=== PATIENT | female | born 1930 | race Caucasian/White ===

== ENCOUNTER 2017-10-23 21:54 | Emergency (ER) | payer BC, OTHER ==
--- NOTE | 2017-10-23 22:10 | PDOC ---
History of Present Illness - General Chief Complaint: Pain, Acute Stated Complaint: SHAKY, HEADACHE, CHEST DISCOMFORT THIS AM Time Seen by Provider: 10/23/17 21:58 - History of Present Illness Initial Comments: This 86-year-old woman with a history of CHF, DM, HTN, HLD, chronic renal insufficiency presents with 2 episodes of chest pain earlier today. Patient speaks limited Albanian (speaks mainly Uzbek) and her family has been interpreting for her. During the morning today, while the patient was at rest, she had pain below her left chest that lasted approximately a half hour. Pain resolved after she took her morning medications. She denies shortness of breath /nausea or vomiting/diaphoresis during this episode. She had no increase of pain with deep breathing and denied cough. This afternoon, she again had pain, location at this time was admitted sternal area. This pain resolved after several minutes and did not have any associated symptoms except for generalized "shakiness" . Patient has not had no increase in her lower extremity edema recently. She denies lower extremity pain The patient has had no recent febrile illness and has been taking her medications as prescribed. Past History - Past Medical History Allergies/Adverse Reactions: Allergies Allergy/AdvReac Type Severity Reaction Status Date / Time No Known Allergies Allergy Verified 10/23/17 22:18 Home Medications: Ambulatory Orders Furosemide [Lasix -] 40 mg PO DAILY 05/02/15 Labetalol HCl 150 mg PO BID 05/02/15 Omeprazole [Prilosec] 40 mg PO DAILY 05/02/15 Tramadol HCl 50 mg PO BID PRN #30 12/11/15 Aspirin [ASA -] 81 mg PO DAILY #30 tab.chew 10/24/17 Atorvastatin Ca [Lipitor] 10 mg PO HS #30 tablet 10/24/17 Anemia: No Asthma: No Cancer: No Cardiac Disorders: No CVA: No COPD: No CHF: No Dementia: No Diabetes: No GI Disorders: Yes (EPIGASTRIC/ABDOMEN PAIN) Disorders: No HTN: Yes Hypercholesterolemia: Yes Liver Disease: No Seizures: No Thyroid Disease: No - Surgical History Abdominal Surgery: No Appendectomy: Yes Cardiac Surgery: No Cholecystectomy: Yes Lung Surgery: No Neurologic Surgery: No Orthopedic Surgery: No - Suicide/Smoking/Psychosocial Hx Smoking Status: No Smoking History: Never smoked Have you smoked in the past 12 months: No Number of Cigarettes Smoked Daily: 0 Hx Alcohol Use: No Drug/Substance Use Hx: No Substance Use Type: None Hx Substance Use Treatment: No Cardiac Specific PMH - Complaint Specific PMHX Pacemaker: No Review of Systems - Review of Systems Able to Perform ROS?: Yes Comments:: 12 point review of systems is negative except for what is noted in the history of present illness *Physical Exam - Vital Signs Last Vital Signs Temp Pulse Resp BP Pulse Ox 97.5 F L 55 L 20 152/58 100 10/23/17 22:28 10/23/17 22:28 10/23/17 22:28 10/23/17 22:28 10/23/17 22:28 - Physical Exam Comments: GENERAL: Elderly female, speaking limited Albanian but alert and responsive; in no acute respiratory distress HEAD: Normal with no signs of trauma. EYES: PERRLA, EOMI, sclera anicteric, conjunctiva clear. ENT: Ears normal, nares patent, oropharynx clear without exudates. Moist mucous membranes. NECK: Normal range of motion, supple without lymphadenopathy, JVD, or masses. LUNGS: Breath sounds equal, clear to auscultation bilaterally. No wheezes, and no crackles. HEART:Regular rate and rhythm, normal S1 and S2 without murmur, rub or gallop. ABDOMEN:.normal bowel sounds No guarding,tenderness or rebound.No masses No distention. EXTREMITIES: Normal range of motion, 2+ pitting edema to mid calf. No clubbing or cyanosis. No erythema, or tenderness. NEUROLOGICAL: Cranial nerves II through XII grossly intact. Normal speech. No focal neurological deficits. MUSCULOSKELETAL: Back non-tender to palpation, no CVA tenderness SKIN: Warm, Dry, normal turgor, no rashes or lesions noted. 12-lead electrocardiogram is performed and interpreted by me: Sinus bradycardia at 48 bpm; axis, wave forms and intervals are normal. There are no acute ST or T-wave abnormalities. Heart Score/ECG Review - History History: Slightly suspicious - Electrocardiogram EKG: Normal - Age Age: >/= 65 - Risk Factors Risk Factors Heart Score: Yes Hx Hypercholesterolemia, Yes Hx Hypertension Based on the list above the patient has:: 1-2 risk factors - Troponin Troponin: </= normal limit - Score Heart Score - Total: 3 ED Treatment Course - LABORATORY CBC & Chemistry Diagram: 10/23/17 22:15 10/23/17 22:15 - ADDITIONAL ORDERS Additional order review: Laboratory Results 10/23/17 10/23/17 10/23/17 23:20 22:28 22:15 PT with INR 11.4 INR 1.02 Sodium Potassium Chloride Carbon Dioxide Anion Gap BUN Creatinine Creat Clearance w eGFR Random Glucose Calcium Total Bilirubin AST ALT Alkaline Phosphatase Creatine Kinase Troponin I < 0.03 Total Protein Albumin Urine Color Yellow Urine Appearance Clear Urine pH 5.0 Ur Specific [place] 1.010 Urine Protein 1+ H D Urine Glucose (UA) Negative Urine Ketones Negative Urine Blood Negative Urine Nitrite Negative Urine Bilirubin Negative Urine Urobilinogen 0.2 Ur Leukocyte Esterase 2+ H Urine RBC 0-2 Urine WBC 60-100 Ur Epithelial Cells Few Amorphous Urates Few Urine Bacteria Few 10/23/17 22:15 PT with INR INR Sodium 136 Potassium 4.4 Chloride 108 H Carbon Dioxide 24 Anion Gap 4 L BUN 39 H Creatinine 1.3 Creat Clearance w eGFR 38.66 Random Glucose 101 D Calcium 11.0 H Total Bilirubin 0.2 AST 15 ALT 14 Alkaline Phosphatase 66 Creatine Kinase 61 Troponin I Total Protein 6.3 L Albumin 3.6 Urine Color Urine Appearance Urine pH Ur Specific [place] Urine Protein Urine Glucose (UA) Urine Ketones Urine Blood Urine Nitrite Urine Bilirubin Urine Urobilinogen Ur Leukocyte Esterase Urine RBC Urine WBC Ur Epithelial Cells Amorphous Urates Urine Bacteria 10/23/17 22:15 RBC 3.67 MCV 91.6 MCHC 33.5 RDW 13.1 MPV 9.1 Neutrophils % 52.8 Lymphocytes % 28.6 Monocytes % 16.7 H Eosinophils % 1.3 Basophils % 0.6 - RADIOLOGY Radiology Studies Ordered: Category Date Time Status CHEST X-RAY PORTABLE* [RAD] Stat Radiology 10/23/17 22:09 Taken - Medications Given in the ED: ED Medications Discontinued Medications Generic Name Dose Route Start Last Admin Trade Name Freq PRN Reason Stop Dose Admin Aspirin 81 mg 10/24/17 00:24 10/24/17 00:32 Asa - PO 10/24/17 00:25 81 mg ONCE ONE Administration Atorvastatin Calcium 10 mg 10/24/17 00:24 10/24/17 00:32 Lipitor - PO 10/24/17 00:25 10 mg ONCE ONE Administration Medical Decision Making - Medical Decision Making 10/23/17 23:43 As noted above, this 86-year-old woman with a couple risk factors for coronary artery disease presents with 2 separate episodes of chest pain earlier today. Exam as noted. Electrocardiogram shows bradycardia without evidence of acute ischemic changes. Laboratory evaluation reveals moderate prerenal azotemia (BUN39 creatinine 1.3) with normal troponin. Remainder of the laboratory evaluation essentially normal. Heart score is 3 Case discussed with patient's attending, . He will follow-up with the patient tomorrow, arranging for stress test as an outpatient. She will be started on aspirin 81 mg daily as well as Lipitor 10 mg daily. First dose is given here in the emergency room with prescriptions transmitted to her pharmacy. Plan discussed with the patient and her sister. They understand and agree to the plan. Patient should return to the emergency room if she has persistent chest pain or experiences shortness breath/diaphoresis/nausea *DC/Admit/Observation/Transfer Diagnosis at time of Disposition: Atypical chest pain - Discharge Dispostion Disposition: HOME Condition at time of disposition: Stable - Prescriptions Prescriptions: Aspirin [ASA -] 81 mg PO DAILY #30 tab.chew Atorvastatin Ca [Lipitor] 10 mg PO HS #30 tablet - Referrals - Patient Instructions Printed Discharge Instructions: DI for Atypical Chest Pain Additional Instructions: Continue medications as previously prescribed Begin Lipitor 10 mg daily tomorrow Begin aspirin 81 mg daily tomorrow Follow-up with tomorrow as discussed Return to ER if you have persistent chest pain or shortness of breath - Post Discharge Activity
[2017-10-23 22:32] VITALS: BP 152/58; PULSE 55; TEMP 97.5; BMI 27.3
[2017-10-23 22:35] LABS: BASO % 0.6 % (0-2.0); EOS % 1.3 % (0-4.5); HEMATOCRIT 33.6 % (32.4-45.2); HEMOGLOBIN 11.3 GM/dl (10.7-15.3); LYMPH % 28.6 % (8-40); MCH 30.7 pg (25.7-33.7); MCHC 33.5 g/dl (32.0-36.0); MEAN CELL VOLUME 91.6 fl (80-96); MEAN PLT VOLUME 9.1 fl (7.5-11.1); MONO % 16.7 % (3.8-10.2); NEUT % 52.8 % (42.8-82.8); PLATELET COUNT 200 K/MM3 (134-434); RBC 3.67 M/mm3 (3.60-5.2); RDW 13.1 % (11.6-15.6); WHITE BLOOD COUNT 5.9 K/mm3 (4.0-10.8)
[2017-10-23 22:43] LABS: INR 1.02 (0.82-1.09); PROTHROMBIN TIME (PATIENT) 11.4 SEC (10.2-13.0)
[2017-10-23 22:48] LABS: ALBUMIN 3.6 g/dl (3.5-5.0); ALK PHOS 66 U/L (32-92); ANION GAP 4 (8-16); BILIRUBIN,TOTAL 0.2 mg/dl (0.2-1.0); BLOOD UREA NITROGEN 39 mg/dl (7-18); CHLORIDE 108 mmol/L (98-107); CO2 24 mmol/L (22-28); CREATININE 1.3 mg/dl (0.6-1.3); GLUCOSE,RANDOM 101 mg/dl (74-106); POTASSIUM 4.4 mmol/L (3.5-5.1); SGOT/AST 15 U/L (10-42); SGPT/ALT 14 U/L (10-40); SODIUM 136 mmol/L (136-145); TOT PROT 6.3 g/dl (6.4-8.3)
[2017-10-23 23:32] LABS: URINE APPEARANCE CLEAR; URINE BILIRUBIN NEGATIVE (NEGATIVE); URINE COLOR YELLOW; URINE GLUCOSE (UA) NEGATIVE (NEGATIVE); URINE KETONE NEGATIVE (NEGATIVE)
[2017-10-23 23:33] LABS: URINE LEUK ESTERASE 2+ (NEGATIVE); URINE NITRITE NEGATIVE (NEGATIVE); URINE PROTEIN 1+ (NEGATIVE); URINE UROBILINOGEN 0.2 (0.2-1.0)
[2017-10-23 23:39] LABS: AMORP URATES FEW /hpf (NONE SEEN); EPI CELLS FEW /HPF; URINE RBC 0-2 /hpf (0-3); URINE WBC 60-100 (0-5)
[2017-10-23 23:40] LABS: URINE BACTERIA FEW /hpf (NEGATIVE)
[2017-10-24] MEDS ORDERED: ASPIRIN 81 MG CHEWABLE TABLETS PO ONE (00:24)
[2017-10-24] MEDS ORDERED: ATORVASTATIN CA 10 MG TABLET (FP) PO ONE (00:24)
[2017-10-24] MEDS ORDERED: ATORVASTATIN CA 20 MG TABLET (FP) ONE (00:27)
[2017-10-24] MEDS ORDERED: ASPIRIN 81 MG CHEWABLE TABLETS ONE (00:27)
--- NOTE | 2017-10-24 09:15 | EKG ---
Test Reason : Blood Pressure : / mmHG Vent. Rate : 048 BPM Atrial Rate : 048 BPM P-R Int : 174 ms QRS Dur : 090 ms QT Int : 448 ms P-R-T Axes : 088 006 031 degrees QTc Int : 400 ms SINUS BRADYCARDIA WITH PREMATURE ATRIAL COMPLEXES MINIMAL VOLTAGE CRITERIA FOR LVH, MAY BE NORMAL VARIANT ABNORMAL ECG Confirmed by CHAKA ANNA MD ([id number]) on 10/24/2017 9:15:17 AM Referred By: DR TAYLOR Confirmed By:CHAKA ANNA MD
== END 2017-10-24 00:36 | disposition home or self-care (01) ==
LOC: FER 21:54
DX: R07.89 Other chest pain (principal); E11.22 Type 2 diabetes mellitus with diabetic chronic kidney disease; I12.9 Hypertensive chronic kidney disease with stage 1 through stage 4 chronic kidney disease, or unspecified chronic kidney disease; N18.9 Chronic kidney disease, unspecified; I50.9 Heart failure, unspecified; E78.5 Hyperlipidemia, unspecified
CPT/HCPCS: 36415; 71045-TC-FY; 80053; 81003; 81015; 82550; 84484; 85025; 85610; 93005; 99282-25

== ENCOUNTER 2018-05-07 11:53 | Emergency (ER) | payer BC ==
[2018-05-07 12:16] VITALS: BMI 26.5
--- NOTE | 2018-05-07 12:24 | PDOC ---
History of Present Illness - General Chief Complaint: Blood Pressure Problem Stated Complaint: BLOOD PRESSURE PROBLEM Time Seen by Provider: 05/07/18 12:22 - History of Present Illness Initial Comments: 05/07/18 12:23 87 year old woman with a history of CHF, DM, HTN, HLD, R eye blindness, chronic renal insufficiency who presents with episode of dizziness that occurred when getting up from bed. She felt as if she was going to fall so she lowered herself to sit down and called her sister who called the ambulance. The patient denies chest pain, shortness of breath, headache, loss of consciousness, nausea , vomiting, abdominal pain or diaphoresis at the time of the episode. Her sister at bedside reports that patient is noncompliant with all medications and does not take them regularly. The patient denies recent illness or fever. Denies anticoagulant use. Denies dysuria, hematuria. The patient admits to some mild dizziness when sitting up at bedside but has no other complaints. Past History - Past Medical History Allergies/Adverse Reactions: Allergies Allergy/AdvReac Type Severity Reaction Status Date / Time No Known Allergies Allergy Verified 10/23/17 22:18 Home Medications: Ambulatory Orders Furosemide [Lasix -] 40 mg PO DAILY 05/02/15 Labetalol HCl 150 mg PO BID 05/02/15 Omeprazole [Prilosec] 40 mg PO DAILY 05/02/15 Aspirin [ASA -] 81 mg PO DAILY #30 tab.chew 10/24/17 Atorvastatin Ca [Lipitor] 10 mg PO HS #30 tablet 10/24/17 Nitrofurantoin Macrocrystal [Macrodantin] 100 mg PO BID 5 Days capsule Nitrofurantoin Macrocrystal [Macrodantin] 100 mg PO BID 5 Days capsule Anemia: No Asthma: No Cancer: No Cardiac Disorders: No CVA: No COPD: No CHF: No Dementia: No Diabetes: No GI Disorders: Yes (EPIGASTRIC/ABDOMEN PAIN) Disorders: No HTN: Yes Hypercholesterolemia: Yes Liver Disease: No Seizures: No Thyroid Disease: No - Surgical History Abdominal Surgery: No Appendectomy: Yes Cardiac Surgery: No Cholecystectomy: Yes Lung Surgery: No Neurologic Surgery: No Orthopedic Surgery: No - Immunization History Immunization Up to Date: (UNKNOWN) - Suicide/Smoking/Psychosocial Hx Smoking Status: No Smoking History: Never smoked Have you smoked in the past 12 months: No Number of Cigarettes Smoked Daily: 0 Hx Alcohol Use: No Drug/Substance Use Hx: No Substance Use Type: None Hx Substance Use Treatment: No *Physical Exam - Vital Signs Last Vital Signs Temp Pulse Resp BP Pulse Ox 97.1 F L 70 17 218/70 H 97 05/07/18 12:14 05/07/18 12:14 05/07/18 12:14 05/07/18 12:14 05/07/18 12:14 Moderate Sedation - Procedure Monitoring Vital Signs: Procedure Monitoring Vital Signs Temperature 97.1 F L 05/07/18 12:14 Pulse Rate 70 05/07/18 12:14 Respiratory Rate 17 05/07/18 12:14 Blood Pressure 218/70 H 05/07/18 12:14 O2 Sat by Pulse Oximetry (%) 97 05/07/18 12:14 ED Treatment Course - LABORATORY CBC & Chemistry Diagram: 05/07/18 12:29 05/07/18 12:29 Medical Decision Making - Medical Decision Making 05/07/18 13:27 ED Course: consider htn emergency vs aryrthmia vs acs vs infectious less likely cbc, cmp, trop, ekg, cxr, ua, ptt, pt/inr 05/07/18 13:41 labwork unremarkable EKG: normal sinus rhythm w/ PACs HR 76, no interval abnormalities, narrow QRS, ST and T wave segments and morphology normal. 05/07/18 14:38 Further history obtained by family that patient looked pale and did not get up from bed to answer the phone, as patient with unwitnessed episode of dizziness, will order head CT to r/o bleed in setting of elevated BP, patient will likely require tele obs admission as patient with significant cardiac risk factors. 05/07/18 15:22 CXR: without acute pathology 05/07/18 16:[address]: unremarkable, UA: 23 wbc trace leuk esterase Patient wants to AMA, will treat uti and give home medications. *DC/Admit/Observation/Transfer Diagnosis at time of Disposition: Pre-syncope, Hypertension - Discharge Dispostion Disposition: AGAINST MEDICAL ADVICE Condition at time of disposition: Fair Decision to Admit order: No - Prescriptions Prescriptions: Nitrofurantoin Macrocrystal [Macrodantin] 100 mg PO BID 5 Days capsule Nitrofurantoin Macrocrystal [Macrodantin] 100 mg PO BID 5 Days capsule - Referrals - Patient Instructions Printed Discharge Instructions: DI for High Blood Pressure, DI for Syncope in Adults (Fainting) Additional Instructions: It is recommended that you be admitted for observation in the hospital for your episode of dizziness and close loss of consciousness. The risks of leaving the hospital without complete evaluation for this episode of dizziness include , cardiac arrest, heart attack, stroke and repeated loss of consciousness. These risks have been discussed with your for > 45min. You express understanding of these risks and still desire to leave the hospital against medical advice. In the ED you were evaluated with labwork and imaging. You results were significant for urinary tract infection and you were prescribed a course of antibiotics. Please take as directed. Take all your medications as directed by your Family Doctor. Return to the Emergency Department if you experience worsening dizziness, loss of consciousness, nausea, vomiting, chest pain, shortness of breath or severe headache. - Post Discharge Activity
[2018-05-07 12:44] LABS: BASO % 0.7 % (0-2.0); EOS % 0.4 % (0-4.5); HEMATOCRIT 36.3 % (32.4-45.2); HEMOGLOBIN 12.1 GM/dL (10.7-15.3); LYMPH % 17.4 % (8-40); MCH 30.8 pg (25.7-33.7); MCHC 33.3 g/dl (32.0-36.0); MEAN CELL VOLUME 92.7 fl (80-96); MEAN PLT VOLUME 9.9 fl (7.5-11.1); MONO % 7.7 % (3.8-10.2); NEUT % 73.8 % (42.8-82.8); PLATELET COUNT 196 K/MM3 (134-434); RBC 3.92 M/mm3 (3.60-5.2); RDW 13.9 % (11.6-15.6); WHITE BLOOD COUNT 8.3 K/mm3 (4.0-10.0)
[2018-05-07 13:02] LABS: INR 1.02 (0.83-1.09)
[2018-05-07 13:05] LABS: ACTIVATED PTT 36.1 SECONDS (25.2-36.5)
[2018-05-07 13:13] LABS: ALBUMIN 3.8 g/dl (3.4-5.0); ALK PHOS 90 U/L (45-117); ANION GAP 7 MMOL/L (8-16); BILIRUBIN,TOTAL 0.5 mg/dL (0.2-1); BLOOD UREA NITROGEN 32 mg/dL (7-18); CALCIUM 12.1 mg/dL (8.5-10.1); CHLORIDE 111 mmol/L (98-107); CO2 23 mmol/L (21-32); CREATININE 1.3 mg/dL (0.55-1.3); GLUCOSE,RANDOM 103 mg/dL (74-106); POTASSIUM 5.3 mmol/L (3.5-5.1); SGOT/AST 31 U/L (15-37); SGPT/ALT 22 U/L (13-61); SODIUM 141 mmol/L (136-145); TOT PROT 7.1 g/dl (6.4-8.2)
[2018-05-07] MEDS ORDERED: LABETALOL HCL 200 MG TABLET (FP) PO ONE ×2 (15:05)
--- NOTE | 2018-05-07 15:15 | PDOC ---
Attending Attestation - Medical Decision Making 05/07/18 15:58 Chest x-ray as reviewed by Dr. Hardin reports no acute pathology. Documentation prepared by Charleen Land, acting as medical technologist microbiology for Jose Heath MD. <Charleen Land - Last Filed: 05/07/18 15:57> - Resident Resident Name: Anne-Marie Hamlin - ED Attending Attestation I have performed the following: I have examined & evaluated the patient, The case was reviewed & discussed with the resident, I agree w/resident's findings & plan, Exceptions are as noted - HPI HPI: 05/07/18 15:10 The patient is a 87 yo female with a significant past medical history of CHF, HTN, DM, HLD, and chronic renal insufficiency (not compliant with meds) who presents to the ED today complaining of dizziness. Patient reports to have stood up from her bed and felt as though the room was spinning, and then sat back down where the dizziness was alleviated. Per her sister, the pt appeared pale when she got there and so she activated EMS. Pt denies headstrike or LOC. Per the sister, the pt does not take any of her medications including her BP, heart failure, HL medications. Pt's sister produces multiple 1 month supply pill bottles that have been filled in December that are still full. Pt lives alone but her sister notes that they fill her pill box with medications which she often does not take. The patient denies cp, nausea, SOB. Denies focal weakness/numbness. Patient denies fever, chills, recent travel. Denies neck or back pain. PCP: Dr. Saenz - Physicial Exam PE: 05/07/18 16:37 GENERAL: Awake, alert, and fully oriented, in no acute distress HEAD: No signs of trauma EYES: PERRLA, EOMI, sclera anicteric, conjunctiva clear ENT: Oropharynx clear without exudates. Moist mucosa NECK: Normal ROM, supple, no lymphadenopathy, JVD, or masses LUNGS: Breath sounds equal, clear to auscultation bilaterally. No wheezes, and no crackles HEART: Regular rate and rhythm, normal S1 and S2, no murmurs, rubs or gallops ABDOMEN: Soft, nontender, normoactive bowel sounds. No guarding, no rebound. No masses EXTREMITIES: Normal range of motion, no edema. No cords, erythema, or tenderness NEUROLOGICAL: Normal speech, cranial nerves intact, 5/5 strength in all 4 extremities, normal sensation to light touch in all 4 extremities, normal cerebellar exam, normal gait, normal tone BACK: no midline cervical, thoracic, lumbar ttp SKIN: Warm, Dry, normal turgor, no rashes or lesions noted. - Medical Decision Making 05/07/18 16:23 87yo F hx CHF, HTN, HL presents to the ED with episode of dizziness and paleness. Vitals here remarkable for BP in the 200s/80s, likely due to medication non compliance. Exam unremarkable, EKG non ischemic. DDx includes arrhythmia vs dehydration vs cva vs tia vs cardiac ischemia. Plan for labs, CTH , UA, CXR, and obs given pre-syncope, and medication non compliance. 05/07/18 17:26 Pt now refusing to stay, states she wants to go home with her family PT's sister states she will stay with the pt shadi and will take her to see Dr. Perdomo tomorrow The patient is clinically sober, free from distracting injury, appears to have intact insight and judgment and reason and in my opinion has the capacity to make decisions. The patient presents with . I have explained that I am concerned that this may represent ; they have verbalized an understanding of my concerns. I have told the patient that while their ___ were normal, they could still have ___. I have discussed the need for ____ to get more information about potential causes of the patients ___(ex: pain). I have told the patient that if they leave and have ___, they could get much worse, could become critically ill, and could possibly become disabled or . I have offered to give the patient more pain medication. I have asked them to stay in the hospital for serial ___ exams. I have offered to have an ___ instead of a __ _. I have discussed these concerns with the patients ___ (family) who is at the bedside and ___ is unable to convince them to stay for further evaluation. The patient is not willing to undergo a ____. He is unwilling to stay overnight for monitoring. He is refusing any further care and is leaving against medical advice. I am unable to convince the patient to stay, I have asked them to return as soon as possible to complete their evaluation. I have spoken with coverage for their primary care doctor in regards to their ___. I have answered all their questions. <Jose Heath - Last Filed: 05/07/18 17:27> Heart Score/ECG Review #1 05/07/18 16:42 Twelve-lead EKG was performed and reviewed by me. Sinus rhythm, rate 76. Normal axis. No ST elevations or T-wave inversions <Jose Heath - Last Filed: 05/07/18 17:27>
[2018-05-07 15:16] LABS: URINE APPEARANCE SLCLOUDY; URINE BILIRUBIN NEGATIVE (<2.0 mg/dL); URINE COLOR YELLOW; URINE GLUCOSE (UA) NEGATIVE (NEGATIVE); URINE KETONE TRACE (NEGATIVE); URINE LEUK ESTERASE TRACE (NEGATIVE); URINE NITRITE NEGATIVE (NEGATIVE); URINE PROTEIN 2+ (NEGATIVE); URINE UROBILINOGEN NEGATIVE mg/dL (0.2-1.0)
[2018-05-07 15:47] LABS: URINE BACTERIA RARE /hpf (NONE SEEN); URINE MUCUS RARE
[2018-05-07] MEDS ORDERED: NITROFURANTOIN MACROCRYSTAL 50 MG CAPSULE (FP) PO SCH (16:45)
[2018-05-07] MEDS ORDERED: NITROFURANTOIN MACROCRYSTAL 50 MG CAPSULE (FP) ONE (17:14)
[2018-05-07 17:39] VITALS: BP 117/58; PULSE 56; TEMP 98.9
--- NOTE | 2018-05-07 18:29 | EKG ---
Test Reason : Blood Pressure : / mmHG Vent. Rate : 076 BPM Atrial Rate : 076 BPM P-R Int : 154 ms QRS Dur : 090 ms QT Int : 386 ms P-R-T Axes : 068 011 043 degrees QTc Int : 434 ms SINUS RHYTHM WITH PREMATURE ATRIAL COMPLEXES MINIMAL VOLTAGE CRITERIA FOR LVH, MAY BE NORMAL VARIANT BORDERLINE ECG WHEN COMPARED WITH ECG OF 23-OCT-2017 22:46, VENT. RATE HAS INCREASED BY 28 BPM Confirmed by ALESSANDRA VALENZUELA, DRE ([id number]) on 05/07/2018 6:29:00 PM Referred By: Confirmed By:DRE APARICIO MD
== END 2018-05-07 18:05 | disposition left against medical advice (07) ==
LOC: JER 11:53 → SUPCPDRO 11:53 → JER 18:05
DX: R55 Syncope and collapse (principal); N39.0 Urinary tract infection, site not specified; I11.0 Hypertensive heart disease with heart failure; I50.9 Heart failure, unspecified; E11.9 Type 2 diabetes mellitus without complications; E78.5 Hyperlipidemia, unspecified; H54.40 Blindness, one eye, unspecified eye; Z91.14 Patient's other noncompliance with medication regimen
CPT/HCPCS: 36415; 70450-TC; 71045-TC-FY; 80053; 81003; 81015; 84484; 85025; 85610; 85730; 87086; 87186; 93005; 93010; 99284-25